=== PATIENT | female | born 1960 | race Caucasian/White ===

== ENCOUNTER 2017-07-04 08:12 | Inpatient (IN) ==
--- NOTE | 2017-07-04 07:24 | Discharge Summary ---
Date of Encounter: 07/06/17 Time of Encounter: 07:59 - Discharge Diagnosis (1) Arthritis of left hip Priority: Primary Status: Chronic (2) Status post left hip replacement Priority: Primary Status: Acute (3) Hypertension Priority: Secondary Status: Chronic Qualifiers: Hypertension type: unspecified secondary hypertension Qualified Code(s): I15.9 - Secondary hypertension, unspecified; I15 - Secondary hypertension (4) Asthma Priority: Secondary Status: Chronic Qualifiers: Asthma severity: unspecified severity Asthma persistence: unspecified Asthma complication type: unspecified Qualified Code(s): J45.909 - Unspecified asthma, uncomplicated (5) Obstructive sleep apnea Priority: Secondary Status: Chronic (6) Morbid obesity with BMI of 45.0-49.9, adult Priority: Secondary Status: Chronic - Discharge Medications Home Medications: Albuterol Sulfate [Ventolin Hfa] 2 puff IH Q4-6H PRN 07/04/17 [History] Aspirin Enteric Coated [Aspirin EC] 325 mg PO BID #20 tablet. 07/04/17 [Rx] Cyanocobalamin (Vitamin B-12) [Vitamin B12] 1,000 mcg PO DAILY 07/04/17 [History ] Docusate Sodium [Dok] 100 mg PO 3XW 07/04/17 [History] Duloxetine HCl [Cymbalta] 120 mg PO DAILY 07/04/17 [History] Etodolac [Lodine] 400 mg PO DAILY 07/04/17 [History] Gabapentin [Neurontin] 300 mg PO TID 07/04/17 [History] Hydromorphone HCl [Dilaudid] 8 mg PO 5XD PRN 07/04/17 [History] Melatonin 5 mg PO HS 07/04/17 [History] Multivit-Min/FA/Lycopen/Lutein [A Thru Z Select Multivit Tab] 1 tab PO DAILY 04/12 [History] Omeprazole [PriLOSEC] 20 mg PO DAILY 07/04/17 [History] OxyCODONE Immed Rel [Roxicodone 5 MG] 5 mg PO Q4HR PRN #24 tablet 07/04/17 [Rx] Oxycodone HCl/Acetaminophen [Percocet 10-325 mg Tablet] 1 tab PO TID PRN [History] Potassium Chloride [Klor-Con 10] 10 meq PO 5XD 07/04/17 [History] Simvastatin [Zocor] 20 mg PO QPM 07/04/17 [History] Triamterene/HCTZ 37.5/25mg [Dyazide] 1 tab PO BID 07/04/17 [History] Allergies/Adverse Reactions: 3 Allergy/AdvReac Type Severity Reaction Status Date / Time bacitracin Allergy swelling Verified 07/04/17 08:40 Methadone Allergy Itching Verified 07/04/17 08:40 Neomycin Allergy swelling Verified 07/04/17 08:40 Penicillins Allergy Hives Verified 07/04/17 08:40 pregabalin [From Lyrica] Allergy tongue Verified 07/04/17 08:40 swelling Sulfa (Sulfonamide Allergy Itching Verified 07/04/17 08:40 Antibiotics) fentanyl AdvReac Vomiting Verified 07/04/17 08:40 morphine AdvReac Nausea Verified 07/04/17 08:40 Primary care physician: Naren Espinosa MD - Patient Status Disposition: Home, Self-Care Condition: Good Functional capacity at discharge: uses cane/walker Overall status at discharge: patient is progressing back to baseline - Discharge Instructions Follow Up With: Naren Espinosa MD [Primary Care Provider] - - Hospital Course Hospital course: Ms. Kruse is a 57 year old female Post left total hip The patient had an uneventful postoperative course. They received antibiotics and physical therapy and were discharged in stable condition. There will follow -up in the office in 2 weeks. - Time Spent with Patient Total time spent providing and/or coordinating discharge services:
[2017-07-04] MEDS ORDERED: *HR* Midazolam HCl 2 MG/2 ML VIAL ONE (08:17)
[2017-07-04] MEDS ORDERED: *HR* FentaNYL (PF) 100 MCG/2 ML VIAL ONE (08:17)
[2017-07-04] MEDS ORDERED: *HR* Propofol 200 MG/20 ML VIAL IVP ONE (08:17)
[2017-07-04] MEDS ORDERED: Lidocaine -MPF 2% 2 ML VIAL ONE (08:18)
[2017-07-04] MEDS ORDERED: *HR* Rocuronium Bromide 50 MG/5 ML VIAL ONE (08:27)
[2017-07-04] MEDS ORDERED: Albuterol 2.5 MG/3 ML NEBULIZER IH ONE (08:28)
[2017-07-04] MEDS ORDERED: Lidocaine -MPF 1% 2 ML VIAL ID ONE (08:28)
[2017-07-04] MEDS ORDERED: Clindamycin 900 MG/50 ML 900 MG/50 ML IV.SOLN IVPB ONE (08:28)
--- NOTE | 2017-07-04 08:29 | Anesthesia Evaluation PreOp ---
Date of Encounter: 07/04/17 Time of Encounter: 08:28 - Past History Planned Operation: Left Robotic total hip arthroplasty Cardiac History: HTN Pulmonary History: Smoker, Pack/yr (20), Asthma, RACHELL Dx (does not use CPAP) [employer]OR History: Other (anxiety, depression, spinal injury, chronic low back pain) Other Medical History: GERD Anesthesia History: No Prior Anesthetic Complications, Past Anesthesia (R foot, left shoulder, vocal cords, lumbar fusion, hysterectomy, oophorectomy) Alcohol Use: none Drug use: none Medications and Allergies Cyclobenzaprine [Flexeril] 10 mg PO TID #12 tablet 04/29/16 [Rx] Aspirin Enteric Coated [Aspirin EC] 325 mg PO BID #20 tablet. 07/04/17 [Rx] OxyCODONE Immed Rel [Roxicodone 5 MG] 5 mg PO Q4HR PRN #24 tablet 07/04/17 [Rx] 3 Allergy/AdvReac Type Severity Reaction Status Date / Time bacitracin Allergy See Verified 06/29/17 15:19 Comments fentanyl Allergy See Verified 06/29/17 15:25 Comments gabapentin Allergy See Verified 06/29/17 15:25 Comments Gramicidin D Allergy Hives Verified 06/29/17 15:25 Methadone Allergy Itching Verified 06/29/17 15:25 morphine Allergy See Verified 06/29/17 15:25 Comments Neomycin Allergy See Verified 06/29/17 15:25 Comments Oxycodone [From OxyContin] Allergy See Verified 06/29/17 15:25 Comments Penicillins Allergy See Verified 06/29/17 15:25 Comments polymyxin B Allergy Hives Verified 06/29/17 15:25 pregabalin [From Lyrica] Allergy See Verified 06/29/17 15:25 Comments Sulfa (Sulfonamide Allergy Itching Verified 06/29/17 15:25 Antibiotics) - Meds/Allergy Pre-op Review Medications Reviewed: Yes Allergies Reviewed: Yes Beta Blockers on Current Med List: No Anesthesia Results - Labs Laboratory Tests 06/29/17 06/29/17 06/29/17 15:32 15:32 15:32 WBC 8.3 Hgb 15.4 Hct 46.8 H Plt Count 250 PT 11.3 INR 1.1 APTT 31.3 Sodium 141 Potassium 3.8 Chloride 102 Carbon Dioxide 26 BUN 14 Creatinine 0.78 - Imaging EKG: report reviewed (SINUS RHYTHM BORDERLINE LEFT AXIS DEVIATION LOW QRS VOLTAGE IN PRECORDIAL LEADS PATTERN CONSISTENT WITH PULMONARY DISEASE POOR R WAVE PROGRESSION Electronically Signed On 07-01-2017 7:17:35 EST by Darryl Sullivan DO) Anesthesia Exam O2 Sat Height 1.63 m Weight 121.563 kg Height: 1.63m Weight: 121kg NPO (# of Hours): >8 - HEENT Pupil (Motor): Pupils equal, EOMI Mallampati: III Teeth: Normal Oral Opening: Greater than 3 - [employer]OR LOC: Oriented [employer] Motor: Normal RUE, Normal LUE, Normal RLE, Normal LLE, Normal Face [employer] Sensory: Normal: RUE, LUE, RLE, LLE, Face - Cardiac Rhythm: Regular - Pulmonary Breath Sounds: bilateral Clear Respiratory Effort: Symmetrical Anesthesia Assess/Plan ASA Score: 3 (HTN, RACHELL, smoker, BMI 46, chronic pain) Modified Cromwell Scale for Level of Consciousness: Cooperative, oriented, and tranquil Anesthetic Plan: General (r/b/a discussed, questions answered, consent obtained) Monitoring Plan: Standard Monitors Recovery Plan: PACU
[2017-07-04] MEDS ORDERED: Ringers Solution, Lactated 1,000 ML IVC SCH ×2 (08:30→12:54)
--- NOTE | 2017-07-04 08:53 | History & Physical Report ---
Date of Encounter: 07/04/17 Time of Encounter: 08:53 24 Hour HP Update - Instructions Instructions: If the History and Physical is less than 30 days old and was completed prior to A.M. admission and or procedure and has NOT been updated on calendar day of procedure please complete this update prior to performing procedure. - Update Patient reports changes in Medical Condition: No Changes in examination, assessment, or condition: No Changes in Medication: No Preop tests/diagnostics Reviewed: Yes Surgery Remains Indicated: Yes Consent for Planned Operative Procedure(s) Verified: Yes - Pre-Operative Checklist Preoperative Checklist Indicated: No Prophylactic Antibiotic Ordered: Yes Is VTE Prophylaxis Indicated?: Yes
[2017-07-04] MEDS ORDERED: Ethanol\\Acetic Acid\\Na Ace\\Ben 1,000 ML IRRIG.SOLN IR ONE (09:09)
[2017-07-04] MEDS ORDERED: Acetaminophen IV 1,000 MG/100 ML INFUS..BTL ONE (09:46)
[2017-07-04] MEDS ORDERED: *HR* Phenylephrine 10 MG/ML VIAL ONE (10:31)
[2017-07-04] MEDS ORDERED: Water for inj. (sterile) 10 ML IV ONE (10:32)
[2017-07-04] MEDS ORDERED: Ondansetron 4 MG/2 ML VIAL ONE (10:38)
[2017-07-04] MEDS ORDERED: Dexamethasone 4 MG/ML VIAL ONE (10:38)
[2017-07-04] MEDS ORDERED: Ketamine *HR* 500 MG/10 ML MDV ONE (10:43)
[2017-07-04] MEDS ORDERED: *HR* Labetalol 20 MG/4 ML SYRINGE IVP PRN (10:51)
[2017-07-04] MEDS ORDERED: Ondansetron 4 MG/2 ML VIAL IVP ONE (10:51)
[2017-07-04] MEDS ORDERED: *HR* Promethazine 25 MG/ML VIAL IVP PRN (10:51)
[2017-07-04] MEDS ORDERED: *HR* HYDROmorphone 2 MG/ML SYRINGE ONE (11:16)
--- NOTE | 2017-07-04 11:45 | Orthopedic Operative Note ---
Date of procedure: 07/04/17 Pre-op diagnosis: Arthritis left hip Post-op diagnosis: same Procedure: Procedure: Left Total Hip Replacment robotic-assisted Estimated blood loss:400 cc Hardware: Metal and polyethylene replacement. [place] DM Cup: cup 52 Femoral size stem 8 Head: 8 head with Erin Procedural Notes: Grade 4 arthritic changes femoral head acetabular socket, procedure performed with robotic assistance. Operative procedure: The patient was brought to the operating room and placed on the operating room table. After general anesthesia was administered the patient was placed in the lateral decubitus position with the operative leg up. All pressure points were padded appropriately and the head was stabilized in the neutral position. The operative extremity was prepped and draped in the sterile surgical fashion patient received IV antibiotic prior to skin incision. 3 Steinmann pins were placed in the iliac crest 3 cm proximal to the anterior superior iliac spine this was for the robotic-assisted sensor. This was done through a small 2 cm incision. A standard posterior approach is made to the operative hip, the incision was made through the skin and subcutaneous tissue hemostasis was obtained with Bovie cautery. Using careful sharp dissection the fascia was identified and incised exposing the external rotators. The femoral checkpoint was placed leg length was measured at this time utilizing robotic assistance. Patient noted to be 6 mm short on the operative side with 2 mm of offset The external rotators were released off the greater trochanter and tagged with #2 FiberWire suture. The capsule was T'd open and the hip was brought into internal rotation. Patient noted to have grade 4 arthritic changes femoral head. The femoral neck cut was made at the appropriate level roughly Xmm proximal to the lesser trochanter aced on preoperative templating. An anterior capsulotomy was performed for the anterior retractor. Soft tissues removed from the acetabulum. Patient noted to have grade 4 arthritic changes acetabulum. The acetabulum checkpoint was placed confirmed. The acetabulum was then mapped with robotic assistance. Based on the preoperative plan the acetabulum was reamed in one step with a 51 reamer. The 53 acetabulum was impacted with robotic assistance and 40 degrees of abduction and 20 degrees of anteversion. The hip was brought back in to internal rotation and prepared with the box loader followed by the canal finder followed by the reaming process to a size 8 broaching process in 20 degrees anteversion. It was broached up to the appropriate size 8. Trial reduction revealed leg lengths close to normal. The femoral implant was impacted in place in 20 degrees of anteversion. Trial reduction found the hip to be stable with 8 head and Erin. The trials were removed and the real implants were impacted in place. The hip was reduced, patient had robotic confirmed leg length of 14 mm longer than the contralateral side. The hip had excellent stability with forward flexion to 90 degrees adduction of 30 degrees and internal rotation of 60 degrees. The hip had no shuck. The hips after 2 minutes with a Betadine saline solution. It was irrigated out with 2 L of pulse irrigation. The checkpoints were removed, Steinmann pins were removed. The deep tissue was irrigated and closed deep with #1 PDS suture superficially with 0 PDS suture and skin was closed with Dermabond and zip tie. The patient was placed in a sterile dressing and abduction pillow. The patient was extubated and transferred to the recovery room in stable condition. Anesthesia: YULISA Surgeon: Anthony Franz Condition: stable Disposition: PACU
[2017-07-04] MEDS: *HR* HYDROmorphone (PF) 1 MG/ML SYRINGE IVP PRN ×2 (12:12→12:19)
[2017-07-04] MEDS ORDERED: Ketorolac 15 MG/ML VIAL IVP ONE (12:27)
[2017-07-04] MEDS ORDERED: Ketorolac 30 MG/ML VIAL ONE (12:30)
[2017-07-04 12:38] LABS: Hematocrit 42.5 % (35.3-44.9)
[2017-07-04 12:39] LABS: Hemoglobin 13.7 g/dL (11.5-15.4)
[2017-07-04] MEDS ORDERED: Sennosides 8.6 MG TABLET PO PRN (12:54)
[2017-07-04] MEDS ORDERED: Ondansetron 4 MG/2 ML VIAL IVP PRN (12:54)
[2017-07-04] MEDS ORDERED: MOM Conc 10 ML UD.LIQ PO PRN (12:54)
[2017-07-04] MEDS ORDERED: Temazepam 15 MG CAPSULE PO PRN (12:54)
[2017-07-04] MEDS ORDERED: [UNRECOGNIZED DRUG - OTHER] PO SCH (12:54)
[2017-07-04] MEDS ORDERED: Naloxone 0.4 MG/ML INJ IVP PRN (12:54)
--- NOTE | 2017-07-04 13:23 | Anesthesia Evaluation Post Op ---
Date of Encounter: 07/04/17 Time of Encounter: 13:21 - Vital Signs Vital Signs: Vital Signs/O2 Sat, Most Current Temp Pulse Resp BP Pulse Ox 98.8 F 120 10 124/84 94 07/04/17 12:58 07/04/17 12:58 07/04/17 12:58 07/04/17 12:58 07/04/17 12:58 - Lungs Lungs: Clear Ascult./Percussion - Airway Airway: Non-obstructed - Cardiovascular Regular Rate - Mental Status Mental Status: Asleep with brisk response to light stimulation - Pain Pain Scale used: Numeric (1 - 10) (tolerable) - Nausea Vomiting Nausea Vomiting: Not Present - Hydration Hydration: Tolerates oral liquids - Discharge PostOp Status: Transfer Patient to floor
[2017-07-04] MEDS: Clindamycin 900 MG/50 ML 900 MG/50 ML IV.SOLN IVPB SCH ×2 (15:12→22:42)
[2017-07-04] MEDS: Gabapentin 300 MG CAPSULE PO SCH ×2 (15:12→19:49)
[2017-07-04] MEDS: *HR* OxyCODONE/APAP 10/325 TABLET PO PRN ×2 (15:12→19:49)
[2017-07-04] MEDS: Cyanocobalamin (B-12) 1,000 MCG TABLET PO SCH (15:13)
[2017-07-04] MEDS: Multivit/Ca/Min/Fe/FA 1 TAB TABLET PO SCH (15:13)
[2017-07-04] MEDS: Ascorbic Acid 500 MG TABLET PO SCH (17:35)
[2017-07-04] MEDS: *HR* HYDROmorphone 4 MG TABLET PO PRN ×2 (17:35→22:43)
[2017-07-04] MEDS: *HR* Enoxaparin 30 MG/0.3 ML SYRINGE SQ SCH (17:36)
[2017-07-04] MEDS ORDERED: *HR* Enoxaparin 30 MG/0.3 ML SYRINGE SQ SCH (18:00)
[2017-07-04] MEDS: Melatonin 3 MG TABLET PO SCH (19:49)
[2017-07-05] MEDS: *HR* HYDROmorphone 4 MG TABLET PO PRN ×4 (04:50→18:36)
[2017-07-05 05:05] LABS: Hematocrit 38.9 % (35.3-44.9); Hemoglobin 12.7 g/dL (11.5-15.4)
[2017-07-05 05:13] LABS: BUN/Creatinine Ratio 16 (6-26); Blood Urea Nitrogen 13 mg/dL (7-20); Calcium 9.3 mg/dL (8.6-10.8); Carbon Dioxide 28 mEq/L (19-29); Chloride 103 mEq/L (98-109); Glucose 124 mg/dL (70-99); Osmolality,Calculated 290 (280-300); Potassium 3.7 mEq/L (3.5-4.5); Sodium 139 mEq/L (136-145); eGFR For African Americans > 60 (> 60); eGFR For Non-African Americans > 60 (> 60)
[2017-07-05] MEDS: *HR* Enoxaparin 30 MG/0.3 ML SYRINGE SQ SCH ×2 (05:20→18:36)
[2017-07-05] MEDS: Gabapentin 300 MG CAPSULE PO SCH ×3 (08:47→19:47)
[2017-07-05] MEDS: Cyanocobalamin (B-12) 1,000 MCG TABLET PO SCH (08:47)
[2017-07-05] MEDS: Ascorbic Acid 500 MG TABLET PO SCH ×2 (08:47→15:29)
[2017-07-05] MEDS: Multivit/Ca/Min/Fe/FA 1 TAB TABLET PO SCH (08:47)
--- NOTE | 2017-07-05 09:01 | Orthopedics Progress Note ---
Date of Encounter: 07/05/17 Time of Encounter: 09:01 Subjective Interval history: Patient was seen this morning doing well without complaints. Afebrile vital signs stable. Operative extremity: Neurovascularly intact Dressing clean dry and intact Calves nontender Assessment and plan: Continue with postoperative care Objective Vital signs: Vital Signs Temp Pulse Resp BP Pulse Ox 07/05/17 07:32 98.2 F 105 14 108/66 92 07/04/17 15:22 99.3 F 112 12 100/66 95 07/04/17 14:04 92 07/04/17 12:58 98.8 F 120 10 124/84 94 07/04/17 12:43 98 F 116 10 133/93 94 07/04/17 12:33 117 10 137/98 94 07/04/17 12:23 98 F 117 10 138/90 95 07/04/17 12:13 114 16 123/85 96 07/04/17 12:03 109 16 120/77 92 07/04/17 11:53 98 F 104 20 155/92 93 Intake and Output 07/04/17 07/05/17 07/05/17 23:59 07:59 15:59 Intake Total 50 / 50 Balance 50 / 50 Intake: IV Fluids 50 / 50 Cleocin Premix 900 MG/50 ML 900 50 / 50 mg In 50 ml @ 50 mls/hr IVPB Q8HR [facility] Rx#:[id number] - Labs CBC & BMP: 07/05/17 04:42 07/05/17 04:42 Labs: Abnormal lab results Glucose 124 mg/dL (70-99) H 07/05/17 04:42 - VTE Documentation of Mechanical Device: Venous foot pump, device Consult Discharge Plan - Plan Referrals: Naren Espinosa MD [Primary Care Provider] -
[2017-07-05] MEDS: *HR* OxyCODONE/APAP 10/325 TABLET PO PRN ×2 (10:43→15:33)
[2017-07-05] MEDS: Melatonin 3 MG TABLET PO SCH (19:47)
[2017-07-06] MEDS: *HR* HYDROmorphone 4 MG TABLET PO PRN ×3 (02:37→14:14)
[2017-07-06] MEDS: *HR* OxyCODONE/APAP 10/325 TABLET PO PRN (04:33)
[2017-07-06 04:59] LABS: Hemoglobin 12.4 g/dL (11.5-15.4)
[2017-07-06 05:08] LABS: BUN/Creatinine Ratio 15 (6-26); Blood Urea Nitrogen 11 mg/dL (7-20); Calcium 9.2 mg/dL (8.6-10.8); Carbon Dioxide 27 mEq/L (19-29); Chloride 100 mEq/L (98-109); Glucose 149 mg/dL (70-99); Osmolality,Calculated 288 (280-300); Potassium 3.3 mEq/L (3.5-4.5); Sodium 138 mEq/L (136-145); eGFR For African Americans > 60 (> 60); eGFR For Non-African Americans > 60 (> 60)
[2017-07-06] MEDS: *HR* Enoxaparin 30 MG/0.3 ML SYRINGE SQ SCH (05:11)
--- NOTE | 2017-07-06 08:01 | Orthopedics Progress Note ---
Date of Encounter: 07/06/17 Time of Encounter: 08:00 - Assessment and Plan (1) Arthritis of left hip Current Visit: No Status: Chronic (2) Status post left hip replacement Current Visit: No Status: Acute (3) Hypertension Current Visit: Yes Status: Chronic Qualifiers: Hypertension type: unspecified secondary hypertension Qualified Code(s): I15.9 - Secondary hypertension, unspecified; I15 - Secondary hypertension (4) Asthma Current Visit: Yes Status: Chronic Qualifiers: Asthma severity: unspecified severity Asthma persistence: unspecified Asthma complication type: unspecified Qualified Code(s): J45.909 - Unspecified asthma, uncomplicated (5) Obstructive sleep apnea Current Visit: Yes Status: Chronic (6) Morbid obesity with BMI of 45.0-49.9, adult Current Visit: Yes Status: Chronic Subjective Interval history: Patient was seen this morning doing well without complaints. Afebrile vital signs stable. Operative extremity: Neurovascularly intact Dressing clean dry and intact Calves nontender Assessment and plan: Continue with postoperative care Hematocrit 37 discharged today Objective Vital signs: Vital Signs Temp Pulse Resp BP Pulse Ox 07/06/17 06:51 99.4 F 100 16 103/66 93 07/06/17 00:00 98.8 F 100 18 113/68 95 07/05/17 20:18 99.0 F 103 20 110/66 94 07/05/17 16:19 99.4 F 99 18 108/62 93 07/05/17 10:49 99.0 F 107 15 105/67 92 07/05/17 08:54 92 Intake and Output 07/05/17 07/06/17 07/06/17 23:59 07:59 15:59 Intake Total 240 / 240 Output Total 1999 1500 / 1500 Balance -1760 / -1760 -1500 / -1500 Intake: Oral 240 / 240 Output: Urine 1999 1500 / 1500 Other: Meal Dinner Percent of Meal Consumed 100% Weight 122.3 kg Patient Weight 07/06/17 23:59 Weight 122.3 kg - Labs CBC & BMP: 07/06/17 04:34 07/06/17 04:34 Labs: Abnormal lab results Potassium 3.3 mEq/L (3.5-4.5) L 07/06/17 04:34 Glucose 149 mg/dL (70-99) H 07/06/17 04:34 - VTE Documentation of Mechanical Device: Venous foot pump, device Consult Discharge Plan - Plan Referrals: Naren Espinosa MD [Primary Care Provider] -
[2017-07-06] MEDS: Multivit/Ca/Min/Fe/FA 1 TAB TABLET PO SCH (08:45)
[2017-07-06] MEDS: Cyanocobalamin (B-12) 1,000 MCG TABLET PO SCH (08:45)
[2017-07-06] MEDS: Gabapentin 300 MG CAPSULE PO SCH ×2 (08:46→14:14)
[2017-07-06] MEDS: Ascorbic Acid 500 MG TABLET PO SCH (08:46)
[2017-07-06 11:45] VITALS: BP 115/76
--- NOTE | 2017-07-08 13:17 | Physician Discharge Referral ---
Home Health/Hosp Referral Info Transfer to: Home Health Attending Provider: Dr. Franz - Diagnosis (1) Morbid obesity Priority: Secondary Status: Acute (2) Status post left hip replacement Priority: Primary Status: Acute (3) Arthritis of left hip Priority: Secondary Status: Chronic (4) Asthma Priority: Secondary Status: Chronic (5) Hypertension Priority: Secondary Status: Chronic (6) Morbid obesity with BMI of 45.0-49.9, adult Priority: Secondary Status: Chronic (7) Obstructive sleep apnea Priority: Secondary Status: Chronic - Respiratory Orders Smoking Cessation: Smoking cessation has been advised. For more information, call the [place] Tobacco Quit Line at 3-786-GQYA-NOW. - Dressing/Wound Care Site: left hip Type of Dressing/Treatments w/Frequency: Opsite placed. Keep dressing intact until first follow up appointment. If > 50% saturated, notify office, remove dressing and place appropriate dressing back in place. Dressing is water resistant, not water-proof. OK to shower, but do not get dressing wet. - Diet/Nutrition Diet/Nutrition Orders: Regular - Activity Activity Orders: Ambulate - Services Needed Following services are medically necessary services: Physical Therapy, Occupational Therapy - Transfer Medications Home Medications: Albuterol Sulfate [Ventolin Hfa] 2 puff IH Q4-6H PRN 07/04/17 [History] Aspirin Enteric Coated [Aspirin EC] 325 mg PO BID #20 tablet. 07/04/17 [Rx] Cyanocobalamin (Vitamin B-12) [Vitamin B12] 1,000 mcg PO DAILY 07/04/17 [History ] Docusate Sodium [Dok] 100 mg PO 3XW 07/04/17 [History] Duloxetine HCl [Cymbalta] 120 mg PO DAILY 07/04/17 [History] Etodolac [Lodine] 400 mg PO DAILY 07/04/17 [History] Gabapentin [Neurontin] 300 mg PO TID 07/04/17 [History] Hydromorphone HCl [Dilaudid] 8 mg PO 5XD PRN 07/04/17 [History] Melatonin 5 mg PO HS 07/04/17 [History] Multivit-Min/FA/Lycopen/Lutein [A Thru Z Select Multivit Tab] 1 tab PO DAILY 04/12 [History] Omeprazole [PriLOSEC] 20 mg PO DAILY 07/04/17 [History] OxyCODONE Immed Rel [Roxicodone 5 MG] 5 mg PO Q4HR PRN #24 tablet 07/04/17 [Rx] Oxycodone HCl/Acetaminophen [Percocet 10-325 mg Tablet] 1 tab PO TID PRN [History] Potassium Chloride [Klor-Con 10] 10 meq PO 5XD 07/04/17 [History] Simvastatin [Zocor] 20 mg PO QPM 07/04/17 [History] Triamterene/HCTZ 37.5/25mg [Dyazide] 1 tab PO BID 07/04/17 [History] Allergies/Adverse Reactions: 3 Allergy/AdvReac Type Severity Reaction Status Date / Time bacitracin Allergy swelling Verified 07/04/17 08:40 Methadone Allergy Itching Verified 07/04/17 08:40 Neomycin Allergy swelling Verified 07/04/17 08:40 Penicillins Allergy Hives Verified 07/04/17 08:40 pregabalin [From Lyrica] Allergy tongue Verified 07/04/17 08:40 swelling Sulfa (Sulfonamide Allergy Itching Verified 07/04/17 08:40 Antibiotics) fentanyl AdvReac Vomiting Verified 07/04/17 08:40 morphine AdvReac Nausea Verified 07/04/17 08:40 Certification: Further, I certify that my clinical findings support that this patient is homebound (i.e. absences from home require considerable and taxing effort and are for medical reasons or scientologist services or infrequently or short duration when for other reasons) because: Homebound Reason: Post-surgery restriction and or conditions limit ability to leave home Attestation: My signature below is to certify that this patient is under my care and that I, or nurse practitioner, or a physician assistant kitchen manager working with me, has a face-to- face encounter with this patient.
== END 2017-07-06 15:17 | disposition home or self-care (01) | DRG 301 ==
LOC: SAMDAY 08:12 → 3NENU 13:27
PROVIDERS: ADMIT Orthopaedic Surgery; ATTEND Orthopaedic Surgery